=== PATIENT | male | born 1950 | race African-American/Black ===

== ENCOUNTER 2016-10-21 16:56 | Outpatient (CLI) | payer MEDICARE ==
[2016-10-21 17:10] LABS: #Basophils 0.1 thou/uL (0.0-0.2); #Eosinphils 0.2 thou/uL (0.0-0.7); #Lymphocytes 1.6 thou/uL (1.20-3.40); #Monocytes 0.6 thou/uL (0.11-0.59); #Neutrophils 1.7 thou/uL (1.40-6.50); %Basophils 2.3 % (0.0-1.0); %Lymphocytes 37.4 % (21.0-51.0); %Monocytes 14.4 % (0.0-10.0); Hematocrit 43.5 % (42.0-52.0); Mean Platelet Volume 5.5 fL (7.4-10.4); Red Blood Cell (RBC) Count 4.32 mill/uL (4.70-6.10); White Blood Cell (WBC) Count 4.2 thou/uL (4.8-10.8)
[2016-10-21 17:13] LABS: Hemoglobin A1c 4.3 % (4.0-6.0)
[2016-10-21 18:11] LABS: ALT (SGPT) 21 U/L (0-55); AST (SGOT) 28 U/L (5-34); Alkaline Phosphatase 75 U/L (40-150); Anion Gap 18 mmol/L (10-20); BUN (Urea Nitrogen) 11 mg/dL (8.4-25.7); Bilirubin, Total 0.8 mg/dL (0.2-1.2); Calc. Creatinine Clearance 0 mL/min (70-130); Calcium 9.7 mg/dL (7.8-10.44); Carbon Dioxide 23 mmol/L (23-31); Chloride 101 mmol/L (98-107); Estimated GFR-MDRD Greater than 90; Globulin 3.2 g/dL (2.4-3.5); LDL Cholesterol, Calculated 90 mg/dL; Protein, Total 7.5 g/dL (5.8-8.1)
== END 2016-10-21 16:57 | disposition home or self-care (01) ==
LOC: NAV SJFMSP 16:56
PROVIDERS: ATTEND Family Medicine
DX: E78.5 Hyperlipidemia, unspecified (principal); I10 Essential (primary) hypertension; E53.8 Deficiency of other specified B group vitamins
CPT/HCPCS: 80053; 80061; 82746; 83036; 84439; 84443; 85025

== ENCOUNTER 2022-06-03 16:33 | Emergency (ER) | payer MEDICARE | END 2022-06-03 17:42 | disposition home or self-care (01) | LOC: NAV ERS 16:33 | DX: G89.29 Other chronic pain (principal); M54.2 Cervicalgia; M79.604 Pain in right leg; M79.605 Pain in left leg; E78.2 Mixed hyperlipidemia; E78.00 Pure hypercholesterolemia, unspecified; I10 Essential (primary) hypertension; Z86.73 Personal history of transient ischemic attack (TIA), and cerebral infarction without residual deficits; I25.10 Atherosclerotic heart disease of native coronary artery without angina pectoris; K21.9 Gastro-esophageal reflux disease without esophagitis; J44.9 Chronic obstructive pulmonary disease, unspecified; F17.210 Nicotine dependence, cigarettes, uncomplicated | CPT/HCPCS: 99283 ==

== ENCOUNTER 2022-08-16 11:11 | Outpatient (CLI) | payer MEDICARE | END 2022-08-16 11:12 | disposition home or self-care (01) | LOC: NAV RAD 11:11 | PROVIDERS: ATTEND Family Medicine | DX: M79.672 Pain in left foot (principal); S93.142A Subluxation of metatarsophalangeal joint of left great toe, initial encounter; M79.9 Soft tissue disorder, unspecified; M85.872 Other specified disorders of bone density and structure, left ankle and foot ==

== ENCOUNTER 2022-08-24 09:22 | Outpatient (CLI) | payer MEDICARE ==
[~2022-08-24 09:22] MED LIST: Iopamidol 370 76% 100 ML VIAL ONE
== END 2022-08-24 09:23 | disposition home or self-care (01) ==
LOC: NAV CT 09:22
PROVIDERS: ATTEND Urology
DX: R97.20 Elevated prostate specific antigen [PSA] (principal); N28.1 Cyst of kidney, acquired; R35.0 Frequency of micturition; Z72.0 Tobacco use; I70.0 Atherosclerosis of aorta; I70.8 Atherosclerosis of other arteries
CPT/HCPCS: 74178; Q9967

== ENCOUNTER 2022-09-01 09:11 | Outpatient (CLI) | payer MEDICARE | END 2022-09-01 09:12 | disposition home or self-care (01) | LOC: NAV CT 09:11 | PROVIDERS: ATTEND Urology | DX: N28.1 Cyst of kidney, acquired (principal); R35.0 Frequency of micturition; R97.20 Elevated prostate specific antigen [PSA]; N28.89 Other specified disorders of kidney and ureter; I70.1 Atherosclerosis of renal artery; N40.0 Benign prostatic hyperplasia without lower urinary tract symptoms; N32.89 Other specified disorders of bladder; Q25.29 Other atresia of aorta; R19.03 Right lower quadrant abdominal swelling, mass and lump; Z72.0 Tobacco use | CPT/HCPCS: 74178; Q9967 ==

== ENCOUNTER 2024-06-25 16:19 | Emergency (ER) | payer OTHER ==
[2024-06-25 18:56] LABS: Bilirubin Negative (Negative); Blood, Urine Negative (Negative); Clarity Clear (Clear); Glucose, Urine (Dipstick) Negative (Negative); Ketone, Urine Negative (Negative); Leukocyte Negative (Negative); Nitrite Negative (Negative); Protein, Urine (Dipstick) Negative (Neg-Trace); Specific Gravity, Urine 1.015 (1.005-1.030); Urobilinogen 0.2 mg/dL (Less than 2)
[2024-06-25 19:25] LABS: Hematocrit 39.3 % (42.0-52.0); Hemoglobin 12.6 g/dL (14.0-18.0); Mean Platelet Volume 6.9 fL (7.4-10.4); Platelet Count 286 10x3/uL (130-400); RBC Distribution Width 14.5 % (11.5-14.5); Red Blood Cell (RBC) Count 3.92 mill/uL (4.70-6.10); White Blood Cell (WBC) Count 8.1 10x3/uL (4.8-10.8)
[2024-06-25 19:27] LABS: Bacteria/HPF Rare-Few HPF (None Seen); CAUTI Indications for Culture Dysuria,urgency,freq; RBC/HPF 0-3 HPF (0-3); Renal Epithelial 0-3 HPF (None Seen); Squamous Epithelial None Seen HPF (0-3); WBC/HPF 0-3 HPF (0-3)
[2024-06-25 19:28] LABS: Urine Culture Reflex No No
[2024-06-25 19:34] LABS: BUN (Urea Nitrogen) 20 mg/dL (8.4-25.7); Calc. Creatinine Clearance 0 mL/min (70-130); Calcium 9.5 mg/dL (7.8-10.44); Estimated GFR 85; Glucose 108 mg/dL (83-110)
[2024-06-25 19:37] LABS: MDiff Complete? YES
[2024-06-25 19:45] LABS: Chloride 82 mmol/L (98-107); Potassium 3.4 mmol/L (3.5-5.1); Sodium 138 mmol/L (136-145)
[2024-06-25 19:59] LABS: Anion Gap 17 mmol/L (10-20); Carbon Dioxide 43 mmol/L (23-31)
[2024-06-25 20:56] LABS: Lymphocytes 7 % (21-51); Monocytes 8 % (0-10); Neutrophil 84 % (42-75)
[2024-06-25 21:01] LABS: Spherocytes SLIGHT = 1-5 cells (100X) (None Seen)
[2024-06-25 21:02] LABS: Anisocytosis SLIGHT = 6-15 cells (100X) (0-5/hpf); Hypochromia SLIGHT = 6-15 cells (100X) (0-5/hpf); Microcytosis MODERATE=15-30 cells (100X) (0-5/hpf); Ovalocytes SLIGHT = 2-5 cells (100X) (0-1/hpf); Platelet Adequacy Comment Appears Adequate; Poikilocytosis SLIGHT = 6-15 cells (100X) (0-5/hpf); Tear Drops SLIGHT = 2-5 cells (100X) (0-1/hpf)
== END 2024-06-25 20:25 | disposition home or self-care (01) ==
LOC: NAV ERS 16:19
DX: R33.9 Retention of urine, unspecified (principal); K59.00 Constipation, unspecified; E87.6 Hypokalemia; E78.00 Pure hypercholesterolemia, unspecified; I10 Essential (primary) hypertension; K21.9 Gastro-esophageal reflux disease without esophagitis; J44.9 Chronic obstructive pulmonary disease, unspecified; F17.210 Nicotine dependence, cigarettes, uncomplicated; Z79.899 Other long term (current) drug therapy
CPT/HCPCS: 74176; 80048; 81001; 85025